=== PATIENT | female | born 1970 | race Caucasian/White ===

== ENCOUNTER 2023-06-03 13:18 | Outpatient (CLI) | payer BC | END 2023-06-03 13:19 | disposition home or self-care (01) | PROVIDERS: ATTEND Student in an Organized Health Care Education/Training Program | DX: I20.9 Angina pectoris, unspecified (principal) | CPT/HCPCS: 93017 ==

== ENCOUNTER 2023-10-09 11:59 | Emergency (ER) | payer BC ==
[~2023-10-09 11:59] MED LIST: Iopamidol-370 76% 500 ML MDV (1 ML CHARGE) ONE
[2023-10-09] MEDS ORDERED: Ondansetron PF 4 MG/2 ML Vial ONE (13:13)
[2023-10-09] MEDS ORDERED: Aspirin Chewable 81 MG TAB ONE (13:14)
[2023-10-09] MEDS ORDERED: Lidocaine 2% Viscous 10 mL, Alum & Magn 30 mL SSW SCH (13:15)
[2023-10-09 13:32] LABS: ALT (SGPT) 26 U/L (8-55); AST (SGOT) 18 U/L (5-34); Albumin 3.8 g/dL (3.5-5.0); Alkaline Phosphatase 90 U/L (40-110); Anion Gap 15 mmol/L (10-20); BUN (Urea Nitrogen) 11 mg/dL (9.8-20.1); Bilirubin, Total 0.5 mg/dL (0.2-1.2); Calc. Creatinine Clearance 0 mL/min (70-130); Calcium 9.3 mg/dL (7.8-10.44); Carbon Dioxide 23 mmol/L (22-29); Chloride 107 mmol/L (98-107); Estimated GFR 92; Globulin 3.6 g/dL (2.4-3.5); Glucose 152 mg/dL (70-105); Protein, Total 7.4 g/dL (6.0-8.3); Sodium 141 mmol/L (136-145)
[2023-10-09 13:35] LABS: Troponin I Less than 0.010 ng/mL (< 0.028)
[2023-10-09 13:39] LABS: #Basophils 0.04 10x3/uL (0.0-0.2); %Basophils 0.5 % (0.0-1.0); %Eosinophils 1.8 % (0.0-10.0); %Lymphocytes 34.2 % (21.0-51.0); %Monocytes 4.5 % (0.0-10.0); %Neutrophils 58.7 % (42.0-75.0); Hematocrit 40.2 % (36.0-47.0); Hemoglobin 13.4 g/dL (12.0-16.0); Mean Corpuscular HGB CONC 33.3 g/dL (32.0-36.0); Mean Corpuscular Hemoglobin 29.2 pg (27.0-31.0); Mean Corpuscular Volume 87.6 fL (78.0-98.0); Mean Platelet Volume 11.1 fL (7.4-10.4); Platelet Count 220 10x3/uL (130-400); RBC Distribution Width 13.3 % (11.5-14.5); Red Blood Cell (RBC) Count 4.59 mill/uL (4.20-5.40)
[2023-10-09] MEDS ORDERED: diphenhydrAMINE 50 MG/ML VIAL ONE (14:44)
[2023-10-09] MEDS ORDERED: Famotidine/PF 20 mg/2ml Vial ONE (14:45)
[2023-10-09] MEDS ORDERED: methylPREDNISolone Sod Succ 40 MG VIAL ONE (14:45)
[2023-10-09] MEDS ORDERED: HYDROcodone/Acetaminophen 5/325 mg Tablet ONE (17:21)
== END 2023-10-09 17:25 | disposition home or self-care (01) ==
LOC: ERS 11:59
DX: R07.9 Chest pain, unspecified (principal); I10 Essential (primary) hypertension; E11.9 Type 2 diabetes mellitus without complications; Z79.899 Other long term (current) drug therapy; Z79.82 Long term (current) use of aspirin
CPT/HCPCS: 36415; 71046; 71275; 80053; 84484; 85025; 85379; 93005; 96374; 96375; J1200; J2405; J2920; Q9967; S0028

== ENCOUNTER 2024-03-30 00:38 | Emergency (ER) | payer BC ==
[2024-03-30 01:52] LABS: #Basophils 0.04 10x3/uL (0.0-0.2); %Basophils 0.4 % (0.0-1.0); %Eosinophils 0.4 % (0.0-10.0); %Lymphocytes 35.6 % (21.0-51.0); %Monocytes 4.8 % (0.0-10.0); %Neutrophils 58.6 % (42.0-75.0); Hematocrit 35.8 % (36.0-47.0); Mean Corpuscular HGB CONC 33.5 g/dL (32.0-36.0); Mean Corpuscular Hemoglobin 28.6 pg (27.0-31.0); Mean Corpuscular Volume 85.4 fL (78.0-98.0); Mean Platelet Volume 9.8 fL (7.4-10.4); Platelet Count 223 10x3/uL (130-400); RBC Distribution Width 13.1 % (11.5-14.5); Red Blood Cell (RBC) Count 4.19 mill/uL (4.20-5.40)
[2024-03-30 02:14] LABS: ALT (SGPT) 24 U/L (8-55); AST (SGOT) 13 U/L (5-34); Albumin 3.8 g/dL (3.5-5.0); Alkaline Phosphatase 72 U/L (40-110); Anion Gap 16 mmol/L (10-20); BUN (Urea Nitrogen) 12 mg/dL (9.8-20.1); Bilirubin, Total 0.3 mg/dL (0.2-1.2); Calc. Creatinine Clearance 0 mL/min (70-130); Calcium 8.8 mg/dL (7.8-10.44); Carbon Dioxide 22 mmol/L (22-29); Chloride 106 mmol/L (98-107); Estimated GFR 87; Glucose 110 mg/dL (70-105); Magnesium 1.8 mg/dL (1.6-2.6); Potassium 2.9 mmol/L (3.5-5.1); Protein, Total 6.8 g/dL (6.0-8.3); Sodium 141 mmol/L (136-145)
[2024-03-30 02:19] LABS: Troponin I Less than 0.010 ng/mL (< 0.028)
[2024-03-30] MEDS ORDERED: Potassium Chloride 20 MEQ TAB ONE (03:16)
== END 2024-03-30 03:27 | disposition home or self-care (01) ==
LOC: ERS 00:38
DX: T78.40XA Allergy, unspecified, initial encounter (principal); R07.89 Other chest pain; E87.6 Hypokalemia; E11.9 Type 2 diabetes mellitus without complications; I10 Essential (primary) hypertension
CPT/HCPCS: 36415; 71045; 80053; 83735; 84443; 84484; 85025; 93005